=== PATIENT | male | born 1980 | race Hispanic/Latino ===

== ENCOUNTER 2024-12-04 11:33 | Emergency (ER) | payer SELFPAY ==
[2024-12-04 11:35] VITALS: BP 144/88
--- NOTE | 2024-12-04 12:15 | ED.GENMED ---
History of Present Illness
General
Chief Complaint: Back Pain
Source: patient
Exam Limitations: none
Time Seen by Provider: 12/04/24 12:05
Nursing documentation reviewed up to this point in time: agreed with
History of Present Illness
History of Present Illness:
44-year-old male with no reported chronic medical issues presents to the ER for evaluation of back pain. Patient reports onset of symptoms a little over a week ago and have been constant since that time. He says that today symptoms were worse
which prompted ER visit. He reports aching pain in the low back that radiates across the back somewhat worse on the left side. He denies any radicular symptoms down the legs. He denies any weakness or numbness in the legs. He denies any saddle
anesthesia. He denies any bowel or bladder incontinence. He has not had any dysuria, hematuria, change in urinary frequency. He has not had any abdominal pain. No nausea or vomiting. He denies any inciting injury or trauma that he can recall.
He denies having had similar symptoms in the past. He says he did take one tablet of ibuprofen this morning around 8:30 AM with minimal relief.
Review of Systems
Review of Systems
All Other Systems: ROS reviewed and negative except as documented in HPI and ROS
Constitutional: Denies fever
Respiratory: Denies trouble breathing
Cardiac: Denies chest pain
ABD/GI: Denies abdominal pain, nausea or vomiting
Musculoskeletal: Reports back pain; Denies neck pain
Neurological: Denies headache, weakness or numbness
Phy Exam
Physical Exam
Physical Exam:
General: Awake, alert, oriented x3; no acute distress
Head: Normocephalic, atraumatic
Eyes: Conjunctiva normal
Throat: Airway intact
Neck: Trachea midline
Lungs: Breathing comfortably no distress
Heart: Regular rate
Abd: Soft, non distended, nontender with no palpable masses
Back: No midline tenderness of the thoracic or lumbar spine; he does have some tenderness in the left paraspinal lower lumbar region; he was able to flex and extend the back in bed as well as rotate although he has pain with rotation and flexion;
negative straight leg raise test bilaterally
Neuro: Cranial nerves grossly intact, speech fluid; motor and sensory intact lower extremities bilaterally, ambulatory in ER
Skin: No rash in area of concern
Extremities: No edema in extremities, warm and well-perfused
Scores
Heart Failure Risk
Heart Failure Risk Score: Not Applicable
Heart Score for Chest Pain Patients
STEMI patient?: Not applicable
Withdrawal Assessment of Alcohol
Withdrawal Assessment Completed?: Not applicable
Course
Orders/Labs/Results
Orders:
Orders
12/04/24 12:14
Acetaminophen [Tylenol] 1,000 mg PO NOW STA
Ketorolac [Toradol] 30 mg IM NOW STA
Lidocaine [Lidocaine 4% Patch] 1 patch TOPICAL ONCE ONE
Apply Lidocaine patch(s) to:: back
Vital Signs
Initial and Last Documented VS:
Initial Vital Signs
Temp Pulse Resp BP Pulse Ox
36.2 C 77 18 144/88 98
12/04/24 11:35 12/04/24 11:35 12/04/24 11:35 12/04/24 11:35 12/04/24 11:35
Last Documented Vital Signs
Temp Pulse Resp BP Pulse Ox
36.2 C 77 18 144/88 98
12/04/24 11:35 12/04/24 11:35 12/04/24 11:35 12/04/24 11:35 12/04/24 12:20
MDM/Problems Addressed
Differential Diagnosis Includes:
Myofascial strain/back spasms, disc herniation/bulging disc/radiculopathy; low clinical suspicion for vertebral fracture; very low clinical suspicion for nephrolithiasis
MDM/Problems Addressed:
44-year-old male presents for evaluation of low back pain radiating across the low back over the past week or so worse this morning; somewhat worse on the left side. No clear inciting trauma or injury. His symptoms are much worse with movement.
Vitals and exam as above. Fortunately he has no red flag symptoms to suggest spinal emergency such as cauda equina syndrome�no indication for emergent MRI. In the absence of any fall or trauma and without midline tenderness in my judgment no
negation for x-rays at this point in time. Will plan to treat symptomatically and reassess.
Patient feeling much better after treatment here in the ER. Stable for discharge advised regarding conservative measures going forward. Follow-up with injury clinic provided. All questions answered.
*Pulse Oximetry
SaO2: 98
Oxygen Mode of Delivery: Room air
Patient hypoxic: no (98%)
*Critical Care Note
Total Time (30-74mins, 75-104mins- exclusive of procedures): Not Applicable
Data Reviewed
Source: patient
Further Testing Considered But Not Given:
Considered urinalysis, considered an MRI of the lumbar spine, considered x-ray of the lumbar spine
ED Attending Note
-
Portions of this chart may have been created with voice recognition software.� Occasional wrong word or��sound alike� substitutions may have occurred due to the inherent limitations of voice recognition software.
Discharge Plan
Departure
Patient with high blood pressure during this ER visit?: Yes
Discharge Problem:
Low back pain
Instructions: Low Back Pain (DC), Back Stretches on Floor
Prescriptions:
New
lidocaine [Lidoderm] 5 % adhesive patch,medicated
1 patch topical DAILY Qty: 15 0RF
Referrals:
[facility] [Outside] - Call in 1-3 days for appt
Activity Restrictions/Additional Instructions:
You are seen in the emergency room for back pain. You were given medications to help with your symptoms. We think your pain is likely muscular pain. You should take the following measures to help control your symptoms:
-You should perform gentle stretching over the next few days and try to continue doing light activities however you should avoid strenuous activity or heavy lifting
- You should apply heating pad to your low back 15 to 20 minutes at a time 3-5 times daily
- You should take ibuprofen 400 mg and Tylenol 1000 mg every 6 hours for the next few days to help control your symptoms
-You can apply 1 Lidoderm patch to the affected region daily
Thank you for visiting the Emergency Department at [facility].
1. Please schedule a follow up appointment as directed. Call first thing tomorrow morning to make an appointment.
2. If indicated, please take your medications as instructed and indicated on discharge paperwork.
3. If any of your symptoms do not improve, or persist, or become more severe within 6-12 hours, please return to the emergency department for further care.
4. Please return to the emergency department if you develop a headache, neck pain/stiffness, fever greater than 100.4F, chest pain, shortness of breath, persistent nausea, vomiting, slurred speech, difficulty walking, numbness/tingling, weakness,
signs of infection or any other symptoms that are worrisome to you.
Please call [phone] if you have any questions.
Interventions
Interventions:
*Risk Screen - Suicide Last Done: 12/04/24 11:39
*General Assessment Last Done: 12/04/24 12:32
*Neglect/Abuse Screening Last Done: 12/04/24 11:39
*ED- Fall Risk Assessment Last Done: 12/04/24 12:32
*ED COVID-19 Vaccine History Last Done: 12/04/24 12:32
ED-Musculoskeletal Assessment Last Done: 12/04/24 12:32
Discharge Date and Time
Print Language: VENEZUELAN
[2024-12-04] MEDS: TYLENOL 1000 MG PO (12:25)
[2024-12-04] MEDS: LIDOCAINE 4% PATCH 1 PATCH TOPICAL (12:26)
[2024-12-04] MEDS: TORADOL 30 MG IM (12:26)
[2024-12-04 13:11] VITALS: BP 131/72
== END 2024-12-04 13:12 | disposition home or self-care (01) ==
LOC: EMR 11:33
PROVIDERS: EMERGENCY PHYSICIAN Emergency Medicine
DX: M54.50 Low back pain, unspecified (principal)
CPT/HCPCS: 99282; 96372